=== PATIENT | female | born 1970 | race Caucasian/White ===

== ENCOUNTER → 2019-11-05 | Outpatient (CLI) | payer BC ==
--- NOTE | 2019-11-05 14:23 | 2DMMODE ---
[facility] [place] [address] 2 D/M-MODE ECHOCARDIOGRAM Name: KEITH CAO Room #: REG ALVIN Hanna.#: [id number] Admission: 11/05/19 Attend Phys: Viji Lund MD Discharge: Date of : 72 Report #: [id number] THIS REPORT FOR: cc: Jace Wade MD,Carl Emerson MD ~ APPROVED REPORT Study performed: 11/05/2019 13:26:06 EXAM: Comprehensive 2D, Doppler, and color-flow Echocardiogram Patient Location: Out-Patient Status: routine BSA: 1.64 HR: 100 bpm BP: 152/86 mmHg Rhythm: Pacemaker Other Information Study Quality: Fair Technically limited study due to body habitus, recent open heart. Indications Chest Pain Recent sternotomy. AVR, MVR, TVR, CABG, Pacemaker. 2D Dimensions RVDd: 37.05 mm IVSd: 9.98 (7-11mm) LVDd: 44.99 mm PWd: 10.40 (7-11mm) LVDs: 42.45 (25-40mm) Volumes Left Atrial Volume (Systole) Single Plane 4CH: 82.57 mL Single Plane 2CH: 77.71 mL LA ESV Index: 50.00 mL/m2 Aortic Valve AoV Peak Kam.: 2.35 m/s AO Peak Gr.: 22.07 mmHg LVOT Max P.62 mmHg AO Mean Gr.: 12.11 mmHg [facility] [address] [place] [address] 2 D/M-MODE ECHOCARDIOGRAM Name: KEITH CAO Room #: [facility] Jacques.#: [id number] Admission: 11/05/19 Attend Phys: Viji Lund Discharge: Date of : 72 Report #: [id number] V2 Mean: 1.65 m/s LVOT Max V: 0.81 m/s AO V2 VTI: 30.47 cm Mitral Valve MV Decel. Time: 193.01 ms MV PHT: 57.32 ms MVA (PHT): 3.84 cm2 Pulmonary Valve PV Peak Kam.: 0.85 m/s PV Peak Gr.: 2.86 mmHg Tricuspid Valve RAP Estimate: 10.00 mmHg Left Ventricle The left ventricle is normal size. Severe global hypokinesis identified with superimposed near akinesis of the septum There is normal left ventricular wall thickness. Left ventricular systolic function is severely decreased. LVEF is 25%. This study is not technically sufficient to allow evaluation of the LV diastolic function. Right Ventricle The right ventricle is normal size. Right ventricle is hypokinetic. Pacemaker lead is present in the right ventricle. Atria Left atrium is dilated. Right atrium is dilated. Aortic Valve History of AV replacement. (Manufacture and size unknown). Peak pressure gradient of 22mmHg and a mean of 12mmHg. Mild aortic regurgitation. Mitral Valve History of recent MV replacement. (Manufature and size unknown). Peak pressure gradient of 10mmHg and a mean of 6mmHg. Mild mitral regurgitation. Tricuspid Valve History of recent TV replacement. (Manufacture and size unknown). Peak pressure gradient of 16mmHg and a mean of 8mmHg. There is no tricuspid valve regurgitation noted. Unable to assess PA pressure. Pulmonic Valve [facility] [employer] [place] [address] 2 D/M-MODE ECHOCARDIOGRAM Name: KEITH CAO Magan Room #: [facility] Jacques.#: [id number] Admission: 11/05/19 Attend Phys: Viji Lund Discharge: Date of : 72 Report #: [id number] Pulmonic valve is not well visualized. Great Vessels Aortic root is not well visualized. IVC is normal in size and collapses <50% with inspiration. Pericardium There is no pericardial effusion. <Conclusion> The left ventricle is normal size. LVEF is 25%. Severe global hypokinesis identified with superimposed near akinesis of the septum The right ventricle is normal size. Right ventricle is hypokinetic. Pacemaker lead is present in the right ventricle. Left atrium is dilated. Right atrium is dilated. History of AV replacement. (Manufacture and size unknown). Peak pressure gradient of 22mmHg and a mean of 12mmHg. Mild aortic regurgitation. History of recent MV replacement. (Manufature and size unknown). Peak pressure gradient of 10mmHg and a mean of 6mmHg. Mild mitral regurgitation. History of recent TV replacement. (Manufacture and size unknown). Peak pressure gradient of 16mmHg and a mean of 8mmHg. There is no tricuspid valve regurgitation noted. Unable to assess PA pressure. Pulmonic valve is not well visualized. There is no pericardial effusion. <ELECTRONICALLY SIGNED> By: Carl Savage MD 11/05/19 1423 [id number] Carl Savage MD /INF
== END ==
LOC: CV 13:06
PROVIDERS: ATTEND Internal Medicine
DX: I08.0 Rheumatic disorders of both mitral and aortic valves (principal); R07.9 Chest pain, unspecified